=== PATIENT | male | born 1945 | race Hispanic/Latino ===

== ENCOUNTER 2018-04-24 01:18 | Emergency (ER) | payer OTHER ==
[~2018-04-24] VITALS: Ht 177.8 cm; Wt 124.3 kg
--- OUTSIDE RECORDS SUMMARY | 2018-04-24 01:22 | XMS REPORT | Clinical Summary ---
Author Author [facility] Organization [facility] Address Unknown Phone Unavailable Care Team Providers Care Store Team Member Name Role Phone Asked, No Pcp PCP Unavailable Allergies Comments Active Allergy Reactions Severity Noted Date Aspirin Swelling 09/30/2016 Medications End Date Status Medication Sig Dispensed Refills Start Date Active diclofenac (VOLTAREN) 75 Take 75 mg by 0 MG EC tablet mouth 2 (two) times a day. Active finasteride (PROSCAR) 5 Take 5 mg by 0 mg tablet mouth nightly. Active folic acid (FOLVITE) 1 MG Take 1 mg by 0 tablet mouth daily. Active gabapentin (NEURONTIN) Take 300 mg 0 300 mg capsule by mouth 3 (three) times a day. Active lisinopril Take 30 mg by 0 (PRINIVIL,ZESTRIL) 30 mg mouth daily. tablet Active metFORMIN (GLUCOPHAGE) Take 850 mg 0 850 mg tablet by mouth 3 (three) times a day with meals. Active ranitidine (ZANTAC) 150 Take 150 mg 0 MG tablet by mouth 2 (two) times a day as needed. Active tamsulosin (FLOMAX) 0.4 Take 0.4 mg 0 mg capsule,extended by mouth release 24hr nightly. Active DULoxetine (CYMBALTA) 60 Take 60 mg by 0 MG capsule mouth every morning. Active cyanocobalamin (VITAMIN Take 1,000 0 B-12) 1000 MCG tablet mcg by mouth daily. Active buPROPion (WELLBUTRIN) Take 100 mg 0 100 MG tablet by mouth every morning. Active sAXagliptin (ONGLYZA) 2.5 Take 2.5 mg 0 mg tablet by mouth daily. Active fenofibrate (TRICOR) 145 Take 145 mg 0 MG tablet by mouth daily. Active pravastatin (PRAVACHOL) Take 20 mg by 0 20 MG tablet mouth every third day. 04/25/2018 Active acetaminophen-codeine Take 1-2 15 tablet 0 (TYLENOL WITH CODEINE #3) tablets by 9 300-30 mg per tablet mouth every 6 (six) hours as needed for moderate pain for up to 3 days. 05/22/2018 Active ondansetron ODT (ZOFRAN Take 1 tablet 15 tablet 0 ODT) 4 MG disintegrating (4 mg total) 9 tablet by mouth every 8 (eight) hours as needed for nausea or vomiting for up to 30 days. 11/12/2017 Discontinued docusate sodium (COLACE) Take 100 mg 0 100 MG capsule by mouth 2 (two) times a day. 11/11/2017 Discontinued DULoxetine (CYMBALTA) 30 Take 30 mg by 0 MG capsule mouth daily. 11/11/2017 Discontinued fluticasone (FLONASE) 50 2 sprays by 0 mcg/actuation nasal spray Each Nare route daily. 11/11/2017 Discontinued niacin (SLO-NIACIN) 500 Take 500 mg 0 mg CR tablet by mouth 2 (two) times a day with meals. 11/11/2017 Discontinued nicotine polacrilex Chew 2 mg as 0 (NICORETTE) 2 mg gum needed for smoking cessation. 11/11/2017 Discontinued phenylephrine 0.25 % Insert 1 0 suppository suppository into the rectum 2 (two) times a day. 11/11/2017 Discontinued simvastatin (ZOCOR) 40 MG Take 40 mg by 0 tablet mouth nightly. 11/19/2017 metroNIDAZOLE (FLAGYL) Take 1 tablet 21 tablet 0 500 MG tablet (500 mg 8 total) by mouth 3 (three) times a day for 7 days. Active Problems Problem Noted Date Diarrhea 11/11/2017 Rotator cuff tear arthropathy of right shoulder 09/30/2016 Encounters Care Team Description Date Type Specialty Hemanth Kwong MD Lumbar back pain (Primary Dx) 04/22/2018 Emergency Emergency Medicine Anish Issa MD Li, MD Lala Ascencio Tanseem Hamad Mohamed A, MD Diarrhea, unspecified type (Primary Dx); Weakness; FRANNY (acute kidney injury) 11/11/2017 Emergency General Surgery - 11/12/2017 after 04/23/2017 Family History Medical History Relation Name Comments Cancer Father Heart disease Mother Relation Name Status Comments Father Mother Social History Date Tobacco Use Types Packs/Day Years Used Current Every Day Smoker Smokeless Tobacco: Never Used Alcohol Use Drinks/Week oz/Week Comments No Sex Assigned at Date Recorded Not on file Industry Job Start Date Occupation Not on file Not on file Not on file Travel End Travel History Travel Start No recent travel history available. Last Filed Vital Signs Time Taken Vital Sign Reading 04/22/2018 10:20 AM [employer] Blood Pressure 153/76 04/22/2018 10:20 AM [employer] Pulse 77 04/22/2018 10:20 AM [employer] Temperature 36.9 C (98.5 F) 04/22/2018 10:20 AM [employer] Respiratory Rate 20 04/22/2018 10:20 AM [employer] Oxygen Saturation 94% - Inhaled Oxygen - Concentration 04/22/2018 6:36 AM [employer] Weight 122 kg (270 lb) 04/22/2018 6:36 AM [employer] Height 177.8 cm (5' 10") 04/22/2018 6:36 AM [employer] Body Mass Index 38.74 Plan of Treatment Health Maintenance Due Date Last Done Comments COLON CANCER SCREENING 11/20/1993 SHINGLES VACCINES (1 of 11/20/1993 2) PNEUMOCOCCAL 11/20/2008 POLYSACCHARIDE VACCINE AGE 65 AND OVER PNEUMOCOCCAL-13 11/20/2008 INFLUENZA VACCINE 10/06/2017 Procedures Comments Procedure Name Priority Date/Time Associated Diagnosis CT ABDOMEN PELVIS W STAT 04/22/2018 CONTRAST 9:29 AM [employer] URINALYSIS SCREEN AND Routine 04/22/2018 MICROSCOPY, WITH REFLEX 8:57 AM [employer] TO CULTURE URINE CULTURE Routine 04/22/2018 8:57 AM [employer] ESTIMATED GFR STAT 04/22/2018 8:05 AM [employer] TROPONIN STAT 04/22/2018 8:05 AM [employer] LIPASE LEVEL STAT 04/22/2018 8:05 AM [employer]ERSON COMPREHENSIVE METABOLIC STAT 04/22/2018 PANEL 8:05 AM [employer] LE[employer] HC COMPLETE BLD COUNT STAT 04/22/2018 W/AUTO DIFF 8:05 AM [employer] POC GLUCOSE Routine 11/12/2017 10:52 AM CDT POC GLUCOSE Routine 11/12/2017 6:27 AM CDT ZZESTIMATED GFR Routine 11/12/2017 5:09 AM CDT LIPID PANEL Routine 11/12/2017 5:09 AM CDT BASIC METABOLIC PANEL Routine 11/12/2017 5:09 AM CDT PROTHROMBIN TIME WITH INR Routine 11/12/2017 5:09 AM CDT HC COMPLETE BLD COUNT Routine 11/12/2017 W/AUTO DIFF 5:09 AM CDT GASTROINTESTINAL PANEL Routine 11/12/2017 1:59 AM CDT POC GLUCOSE Routine 11/11/2017 10:25 PM CDT LACTIC ACID LEVEL Routine 11/11/2017 8:37 PM CDT BLOOD CULTURE, AEROBIC & Routine 11/11/2017 ANAEROBIC 8:37 PM CDT BLOOD CULTURE, AEROBIC & Routine 11/11/2017 ANAEROBIC 8:[address] ABDOMEN PELVIS WO STAT 11/11/2017 CONTRAST 6:28 PM CDT GRAM STAIN STAT 11/11/2017 6:19 PM CDT URINE CULTURE STAT 11/11/2017 6:19 PM CDT URINALYSIS SCREEN AND STAT 11/11/2017 MICROSCOPY, WITH REFLEX 3:07 PM CDT TO CULTURE URINE CULTURE STAT 11/11/2017 3:07 PM CDT ZZESTIMATED GFR STAT 11/11/2017 2:50 PM CDT LIPASE LEVEL STAT 11/11/2017 2:50 PM CDT COMPREHENSIVE METABOLIC STAT 11/11/2017 PANEL 2:50 PM CDT HC COMPLETE BLD COUNT STAT 11/11/2017 W/AUTO DIFF 2:50 PM CDT after 04/23/2017 Results * CT Abdomen Pelvis W Contrast (04/22/2018 9:29 AM [employer]) Narrative Performed At EXAMINATION: [facility]IANT CT ABDOMEN PELVIS W CONTRAST CLINICAL HISTORY: Abd painfeverabscess suspected, lower back pain radiating to the front TECHNIQUE: An emergency study was performed at [address] images were acquired using low-dose technique with iterative reconstructions and/or automatic exposure control to reduce radiation dose. Scans were obtained of the abdomen and pelvis with intravenous and oral contrast enhancement. Sagittal and coronal computerized reformatted images were also obtained. COMPARISON: CT scan of the abdomen and pelvis, obtained on 11/11/2017. ABDOMEN: The bones are demineralized. Disc space narrowing, vacuum discs, endplate sclerosis and osteophytosis is at L4-5 and L5-S1. Mild S-shaped scoliosis is in the thoracolumbar spine. Hip joint spaces are narrowed bilaterally. The SI joints are intact. Visualized portions of the chest demonstrate a small hiatal hernia. Heart is normal in size. Minimal coronary atherosclerosis is present. The liver remains diffusely decreased in density. Spleen, pancreas, gallbladder and biliary ducts are normal.The adrenal glands and kidneys are normal. Atherosclerotic calcification is in the aorta and its branches. Inferior vena cava is normal. There is no retroperitoneal adenopathy.Allowing for the hiatal hernia, gastric contours are normal.Small bowel is not dilated.The appendix is normal. Diverticula are again seen in the distal colon, most numerous in the sigmoid. PELVIS: Bladder contours are normal. Ureters are normal.Prostate and seminal vesicles are within normal limits.No fluid collections or masses are seen. IMPRESSION: Diverticulosis without CT evidence of diverticulitis. Fatty infiltration of liver. Small hiatal hernia. Minimal coronary artery disease. [id number] Procedure Note Hm Interface, Radiology Results Incoming - 04/22/2018 10:03 AM [employer] EXAMINATION: CT ABDOMEN PELVIS W CONTRAST CLINICAL HISTORY: Abd pain fever abscess suspected, lower back pain radiating to the front TECHNIQUE: An emergency study was performed at [address] images were acquired using low-dose technique with iterative reconstructions and/or automatic exposure control to reduce radiation dose. Scans were obtained of the abdomen and pelvis with intravenous and oral contrast enhancement. Sagittal and coronal computerized reformatted images were also obtained. COMPARISON: CT scan of the abdomen and pelvis, obtained on 11/11/2017. ABDOMEN: The bones are demineralized. Disc space narrowing, vacuum discs, endplate sclerosis and osteophytosis is at L4-5 and L5-S1. Mild S-shaped scoliosis is in the thoracolumbar spine. Hip joint spaces are narrowed bilaterally. The SI joints are intact. Visualized portions of the chest demonstrate a small hiatal hernia. Heart is normal in size. Minimal coronary atherosclerosis is present. The liver remains diffusely decreased in density. Spleen, pancreas, gallbladder and biliary ducts are normal. The adrenal glands and kidneys are normal. Atherosclerotic calcification is in the aorta and its branches. Inferior vena cava is normal. There is no retroperitoneal adenopathy. Allowing for the hiatal hernia, gastric contours are normal. Small bowel is not dilated. The appendix is normal. Diverticula are again seen in the distal colon, most numerous in the sigmoid. PELVIS: Bladder contours are normal. Ureters are normal. Prostate and seminal vesicles are within normal limits. No fluid collections or masses are seen. IMPRESSION: Diverticulosis without CT evidence of diverticulitis. Fatty infiltration of liver. Small hiatal hernia. Minimal coronary artery disease. [id number] Performing Organization Address City/State/Zipcode Phone Number [facility] [address] [place] [address] * Urinalysis screen and microscopy, with reflex to culture (04/22/2018 8:57 AM [employer]AD[employer]) Only the most recent of 2 results within the time period is included. Specimen site Catheterized [facility] Color, UA Yellow [facility] Appearance, UA Clear [facility] Specific gravity, UA 1.023 1.001 - 1.035 [facility] pH, UA 7.0 5.0 - 8.5 [facility] Protein, UA 2+ (A) Negative [facility] Glucose, UA Negative Negative [facility] Ketones, UA Trace (A) Negative [facility] Bilirubin, UA Negative Negative [facility] Blood, UA Small (A) Negative [facility] Nitrite, UA Negative Negative [facility] Urobilinogen, UA 4.0 (A) <2.0 [facility] Leukocyte esterase, UA Negative Negative [facility] Epithelial cells, UA Few /HPF [facility] WBC, UA 1 0 - 1 /HPF [facility] RBC, UA 1 0 - 5 /HPF [facility] Bacteria, UA None seen None seen [facility] Yeast, UA None seen [facility] Yeast with pseudohyphae, None seen [facility] Specimen Urine Performing Organization Address City/[facility] [place] [address] PATHOLOGY AND GENOMIC MEDICINE [address] * Urine culture (04/22/2018 8:57 AM [employer]AD[employer]ERSON) Only the most recent of 3 results within the time period is included. Urine culture SEE COMMENTComment: [facility] Bacteriuria screen negative. [facility] Specimen Urine Performing Organization Address [facility] [place] [address] PATHOLOGY AND GENOMIC MEDICINE [address] * Estimated GFR (04/22/2018 8:05 AM [employer] LEAD[employer]ERSON) Estimated GFR 49 (A) mL/min/1.[address] [facility] Comment: [facility] CatergoryUnitsInte rpretation G1 >=90 Normal or high G2 60-89Mildly decreased [id number] Mildly to moderately decreased [id number] Moderately to severely decreased G4 15-29Severely decreased G5 <15Kidney failure The eGFR was calculated using the Chronic Kidney Disease Epidemiology Collaboration (CKD-EPI) equation. Interpretation is based on recommendations of the National Kidney Foundation-Kidney Disease Outcomes Quality Initiative (NKF-KDOQI) published in 2014. Specimen Plasma specimen Performing Organization Address City/[facility] Centercode Phone Number [address] [place] [address] PATHOLOGY AND GENOMIC MEDICINE [facility] [address] [place] [address] * Troponin (04/22/2018 8:05 AM [employer]AD[employer]ERSON) Troponin <0.30 0.00 - 0.30 ng/mL [facility] Comment: [facility] 0.11 - 1.49 ng/mlMay indicate increased risk of acute coronary syndrome. >=1.5 ng/ml Consistent with acute myocardial infarction. The diagnostic value of a single normal or non-diagnostic result is questionable.Serial samples at 2-6 hour intervals are required to rule out acute myocardial injury. Specimen Plasma specimen Performing Organization Address City/State/Zipcode Phone Number [facility] [address] [place], [place] [id number] PATHOLOGY AND GENOMIC MEDICINE [address] * CBC with platelet and differential (04/22/2018 8:05 AM [employer] LEAD[employer]ERSON) Only the most recent of 3 results within the time period is included. WBC 14.6 (H) 4.2 - 11.0 k/uL [facility] RBC 3.59 (L) 4.04 - 5.86 m/uL [facility] HGB 10.8 (L) 13.0 - 17.3 g/dL [facility] HCT 34.0 34.0 - 45.0 % [facility] MCV 94.7 80.0 - 98.0 fL [facility] MCH 30.1 27.0 - 34.0 pg [facility] MCHC 31.8 31.5 - 36.5 g/dL [facility] RDW - SD 48.6 37.0 - 51.0 fL [facility] MPV 10.3 7.4 - 10.4 fL [facility] Platelet count 284 150 - 400 k/uL [facility] Nucleated RBC 0.00 /100 WBC [facility] Neutrophils 83.3 (H) 36.0 - 66.0 % [facility] Lymphocytes 9.3 (L) 24.0 - 44.0 % [facility] Monocytes 6.2 (H) 0.0 - 6.0 % [facility] Eosinophils 0.2 0.0 - 6.0 % [facility] Basophils 0.2 0.0 - 1.2 % [facility] Immature granulocytes 0.8 0.0 - 1.0 % [facility] Specimen Blood Performing Organization Address City/[facility] [place] [address] PATHOLOGY AND [facility] MEDICINE [address] * Lipase level (04/22/2018 8:05 AM [employer] LEADPERSON) Only the most recent of 2 results within the time period is included. Lipase 26 13 - 60 U/L [facility] Specimen Plasma specimen Performing Organization Address [facility] [place] [address] PATHOLOGY AND [facility] [address] * Comprehensive metabolic panel (04/22/2018 8:05 AM [employer] LEADPERSON) Only the most recent of 2 results within the time period is included. Sodium 137 135 - 150 mEq/L [facility] Potassium 4.5 3.5 - 5.0 mEq/L [facility] Chloride 103 98 - 112 mEq/L [facility] CO2 20 (L) 24 - 31 mmol/L [facility] Anion gap 14@ANIO 7 - 15 mEq/L [facility] BUN 21 (H) 7 - 18 mg/dL [facility] Creatinine 1.40 (H) 0.70 - 1.20 mg/dL [facility] Glucose 172 (H) 65 - 100 mg/dL [facility] Calcium 9.1 8.8 - 10.2 mg/dL [facility] Protein 7.3 6.3 - 8.3 g/dL [facility] Albumin 3.4 (L) 3.5 - 5.0 g/dL [facility] A/G ratio 0.9 0.7 - 3.8 [facility] Alkaline phosphatase 58 0 - 129 U/L [facility] AST 78 (H) 10 - 50 U/L [facility] ALT 44 5 - 50 U/L [facility] Total bilirubin 0.5 0.2 - 1.2 mg/dL [facility] Specimen Plasma specimen Performing Organization Address City/State/[place] [address] PATHOLOGY AND GENOMIC MEDICINE [address] * POC glucose (11/12/2017 10:52 AM CDT) Only the most recent of 3 results within the time period is included. POC glucose 165 (H) 65 - 100 mg/dL [facility] Comment: PATHOLOGY AND Meter ID: [id number] GENOMIC MEDICINE [employer]pper Helper: Sin Gar Performing Organization Address City/[facility] [place] [address] PATHOLOGY AND GENOMIC MEDICINE * Estimated GFR (11/12/2017 5:09 AM CDT) Only the most recent of 2 results within the time period is included. GFR Non Af Amer 54 (A) mL/min/1.[address] [facility] PATHOLOGY AND GENOMIC MEDICINE GFR Af Amer 65 mL/min/1.[address] [facility] Comment: PATHOLOGY AND Chronic kidney disease: <60 GENOMIC MEDICINE mL/min/1.73m2 Kidney failure: <15 mL/min/1.73m2 The estimated GFR is calculated from the IDMS-traceable Modification of Diet in Renal Disease Equation. The accuracy of the calculation is poor when the creatinine is normal. Calculated values >90 mL/min/1.73m2 are not reported. This equation has not been validated in children (<18 years), women, the elderly (>70 years), or ethnic groups other than Caucasians and Americans. Specimen Plasma specimen Performing Organization Address City/[facility]/Zipcode Phone Number [facility] [address] [place] [address] PATHOLOGY AND [employer] MEDICINE * Prothrombin time with INR (11/12/2017 5:09 AM CDT) Prothrombin time 14.3 12.0 - 15.[address] [facility] PATHOLOGY AND [employer] [facility] INR 1.10 0.92 - 1.12 [facility] Comment: PATHOLOGY AND For patients on anticoagulant GENOMIC MEDICINE therapy, reference ranges below: Indication: INR Value Treatment of Venous Thrombosis, 2.0-3.0 pulmonary emboli, or prophylaxis of a venous thrombosis, or systemic emboli. High dose, high risk patients 3.0-4.5 with mechanical valves. NOTE:INR values over 3.0 are sometimes associated with gastrointestinal hemorrhage, especially values over 4.0. Specimen Blood Performing Organization Address City/[facility] Cent[facility]ode Phone Number [facility] [address] [place] [address] PATHOLOGY AND [employer] [facility]IC[facility] * Lipid panel (11/12/2017 5:09 AM CDT) Cholesterol 117 0 - 199 mg/dL [facility] PATHOLOGY AND [employer] [facility] Triglycerides 251 (H) 0 - 149 mg/dL [facility] PATHOLOGY AND [employer] [facility] HDL cholesterol 28 (L) 40 - 9,999 mg/dL [facility] PATHOLOGY AND [employer] [facility] LDL cholesterol 72Comment: Result obtained by 0 - 99 mg/dL [facility] direct LDL measurement PATHOLOGY AND [employer] [facility] Lipid panel See below [facility] interpretation Comment: PATHOLOGY AND Total Cholesterol GENOMIC MEDICINE (mg/dL) LDL Cholesterol (mg/dL) <200 Desirable <100 Optimal 200-239Borderline -[id number] 29Near or above optimal >=240High 130-159Borderline- high 160-189High >=190Very high HDL Cholesterol (mg/dL) Triglycerides (mg/dL) <40Low <150 Normal >=60 High 150-199Borderline- high 200-499High >=500Very high Risk Catergories that modify LDL goals. Risk Catergories LDL goal (mg/dL) CHD and CHD risk equivalent <100 (10-year risk >20%) Multiple (2+) risk factors <130 (10-year risk=<20%) 0-1 risk factors <160 (<10-year risk) Defining levels of lipids in metabolic syndrome Triglycerides >=150 mg/dL HDL Cholesterol Men <40 mg/dL Women <50 mg/dL Non-HDL cholesterol is a second target for therapy in persons with high triglycerides (>=200 mg/dL) Specimen Plasma specimen Performing Organization Address [facility] Phone Number [place] [address] [place] [address] PATHOLOGY AND GENOMIC MEDICINE * Basic metabolic panel (11/12/2017 5:09 AM CDT) Sodium 140 135 - 150 mEq/L [facility] PATHOLOGY AND GENOMIC MEDICINE Potassium 4.4 3.5 - 5.0 mEq/L [facility] PATHOLOGY AND GENOMIC MEDICINE Chloride 107 98 - 112 mEq/L [facility] PATHOLOGY AND GENOMIC MEDICINE CO2 21 (L) 24 - 31 mmol/L [facility] PATHOLOGY AND GENOMIC MEDICINE Anion gap 12@ANIO 7 - 15 mEq/L [facility] PATHOLOGY AND GENOMIC MEDICINE BUN 28 (H) 7 - 18 mg/dL [facility] PATHOLOGY AND GENOMIC MEDICINE Creatinine 1.30 (H) 0.70 - 1.20 mg/dL [facility] PATHOLOGY AND GENOMIC MEDICINE Glucose 138 (H) 65 - 100 mg/dL [facility] PATHOLOGY AND GENOMIC MEDICINE Calcium 7.9 (L) 8.8 - 10.2 mg/dL [facility] PATHOLOGY AND GENOMIC MEDICINE Specimen Plasma specimen Performing Organization Address [facility] Phone Number [place] [address] [place] [address] PATHOLOGY AND [employer] [facility]IC[facility] * Gastrointestinal panel (11/12/2017 1:59 AM CDT) Gastrointestinal panel Negative for all pathogens [facility] DEPARTMENT OF tested: PATHOLOGY AND Negative for Salmonella GENOMIC MEDICINE Negative for Campylobacter Negative for Diarrheagenic E coli/Shigella Negative for Shiga-like toxin-producing E coli Negative for Plesiomonas shigelloides Negative for Yersinia enterocolitica Negative for Vibrio species Negative for Clostridium difficile (Toxin A/B) Negative for Cryptosporidium Negative for Giardia lamblia Negative for Cyclospora cayeteanensis Negative for Entamoeba histolytica Negative for Adenovirus F 40/41 Negative for Astrovirus Negative for Norovirus GI/GII Negative for Rotavirus A Negative for Sapovirus Negative for Clostridium difficile toxin Negative for E coli 0157 This real-time PCR assay detects the presence of nucleic acids (RNA or DNA) for the gastrointestinal pathogens listed. A result of "Not-detected" does not exclude the possibility of the presence of one or more pathogens at concentrations less than the detectable limits of the assay. Comment: Specimen Information Specimen Source: Stool Specimen Site: Nonpreserved Specimen Stool - Nonpreserved Performing Organization Address [facility]/Zipcode Phone Number [facility] DEPARTMENT OF [address] [place] [phone] PATHOLOGY AND GENOMIC MEDICINE * Blood culture, aerobic & anaerobic (11/11/2017 8:37 PM CDT) Only the most recent of 2 results within the time period is included. Blood culture isolate No growth after 5 days of [facility] DEPARTMENT OF incubation. PATHOLOGY AND Comment: GENOMIC MEDICINE Specimen Information Specimen Source: Blood Specimen Site: Peripheral Hand Left Specimen Blood Performing Organization Address [facility] Cent[facility]ode Phone Number [facility] DEPART[facility] [address] [address] PATHOLOGY AND GENOMIC MEDICINE * Lactic acid level (11/11/2017 8:37 PM CDT) Lactic acid 1.9 0.5 - 2.2 mmol/L [facility] [place] [facility] AND GENOMIC MEDICINE Specimen Blood Performing Organization Address [facility] Centercode Phone Number [facility] [address] [place] [address] PATHOLOGY AND GENOMIC MEDICINE * CT Abdomen Pelvis Wo Contrast (11/11/2017 6:28 PM CDT) Narrative Performed At EXAMINATION:CT ABDOMEN PELVIS WO CONTRAST RADIANT CLINICAL HISTORY:diarrhea COMPARISON:None. TECHNIQUE:CT of the abdomen and pelvis without intravenous contrast. Absence of intravenous contrast decreases sensitivity for detection of focal lesions and vascular pathology. CT imaging was performed with iterative reconstruction techniques and/or automated exposure control to reduce radiation dose. FINDINGS: LOWER THORAX:There are coronary artery calcifications.There is no pericardial effusion. There is minimal dependent atelectasis at the lung bases. There is no pleural effusion. HEPATOBILIARY:There is markedly diffusely decreased attenuation of the liver parenchyma, consistent with severe hepatic steatosis. The gallbladder appears unremarkable. There is no biliary ductal dilatation. SPLEEN:No splenomegaly. PANCREAS:No focal masses or ductal dilation. ADRENALS:No adrenal nodules. KIDNEYS:There is bilateral renal cortical scarring and perirenal stranding. There is no urolithiasis.There is no hydronephrosis. There is a fluid-attenuating cyst in the left medial inferior renal pole. PELVIC ORGANS:Unremarkable. GI TRACT:There is no gastrointestinal distention to suggest obstruction. There is no pathologic gastrointestinal wall thickening. There is colonic diverticulosis without evidence of acute diverticulitis. The appendix appears normal. There is no free intraperitoneal air. There is no free fluid or focal drainable collection. PERITONEUM/RETROPERITONEUM:No free air or fluid. LYMPHATIC: There is no lymphadenopathy. VESSELS: There is mild atherosclerotic calcification of the arterial vasculature. There is no evidence of abdominal aortic aneurysm. BONES AND SOFT TISSUES:There is demineralization and degenerative change of the visualized skeleton. There is no acute or suspicious osseous abnormality.There is no hernia of the body wall. IMPRESSION: No acute abdominal or pelvic pathology. Colonic diverticulosis without evidence of acute diverticulitis. Severe hepatic steatosis. [facility]-[id number] Procedure Note Interface, Radiology Results Incoming - 11/11/2017 6:49 PM CDT EXAMINATION: CT ABDOMEN PELVIS WO CONTRAST CLINICAL HISTORY: diarrhea COMPARISON: None. TECHNIQUE: CT of the abdomen and pelvis without intravenous contrast. Absence of intravenous contrast decreases sensitivity for detection of focal lesions and vascular pathology. CT imaging was performed with iterative reconstruction techniques and/or automated exposure control to reduce radiation dose. FINDINGS: LOWER THORAX: There are coronary artery calcifications. There is no pericardial effusion. There is minimal dependent atelectasis at the lung bases. There is no pleural effusion. HEPATOBILIARY: There is markedly diffusely decreased attenuation of the liver parenchyma, consistent with severe hepatic steatosis. The gallbladder appears unremarkable. There is no biliary ductal dilatation. SPLEEN: No splenomegaly. PANCREAS: No focal masses or ductal dilation. ADRENALS: No adrenal nodules. KIDNEYS: There is bilateral renal cortical scarring and perirenal stranding. There is no urolithiasis. There is no hydronephrosis. There is a fluid- attenuating cyst in the left medial inferior renal pole. PELVIC ORGANS: Unremarkable. GI TRACT: There is no gastrointestinal distention to suggest obstruction. There is no pathologic gastrointestinal wall thickening. There is colonic diverticulosis without evidence of acute diverticulitis. The appendix appears normal. There is no free intraperitoneal air. There is no free fluid or focal drainable collection. PERITONEUM/RETROPERITONEUM: No free air or fluid. LYMPHATIC: There is no lymphadenopathy. VESSELS: There is mild atherosclerotic calcification of the arterial vasculature. There is no evidence of abdominal aortic aneurysm. BONES AND SOFT TISSUES: There is demineralization and degenerative change of the visualized skeleton. There is no acute or suspicious osseous abnormality. There is no hernia of the body wall. IMPRESSION: No acute abdominal or pelvic pathology. Colonic diverticulosis without evidence of acute diverticulitis. Severe hepatic steatosis. [facility]-[id number] Performing Organization Address City/State/Zipcode Phone Number [facility] [address] [place] [address] * Gram stain (11/11/2017 6:19 PM CDT) Gram stain result No WBC's or organisms seen. [facility] DEPARTMENT OF Comment: PATHOLOGY AND Specimen Information GENOMIC MEDICINE Specimen Source: Urine Specimen Site: Clean catch Specimen Urine Performing Organization Address City/[facility] Centercode Phone Number [facility] DEPARTMENT OF [address] [place] [address] PATHOLOGY AND GENOMIC MEDICINE after 04/23/2017 Insurance Payer Benefit Subscriber ID Type Phone Address Plan / Group [employer] MEDICARE HUMANA xxxxxxxxx PPO MEDICARE PPO/PFFS/E [facility] Advance Directives Patient has advance care planning documents on file. For more information, nohemy cao contact: Kyle Hooks [address] [place] [address]
[2018-04-24] MEDS ORDERED: DIAZEPAM 5 MG TAB PO STA (02:56)
[2018-04-24] MEDS ORDERED: KETOROLAC TROMETHAMINE 60 MG/2 ML VIAL IM ONE (03:00)
[2018-04-24 03:57] VITALS: BP 153/76
== END 2018-04-24 03:55 | disposition home or self-care (01) ==
LOC: ER 01:18
DX: M54.5 Low back pain (principal); G89.29 Other chronic pain
CPT/HCPCS: 96372; 99282; J1885